=== PATIENT | male | born 1940 | race African-American/Black ===

== ENCOUNTER 2018-10-31 08:47 | Emergency (ER) | payer MEDICARE, MEDICAID ==
[~2018-10-31] VITALS: Ht 177.8 cm; Wt 87.0 kg
[~2018-10-31 08:47] MED LIST: AMLO5TAB4 PO; CELE200C PO; DEXL60CA3 PO; DIGO125T82 PO; DORZ10DR8 RIGHTEYE; HYDR12.529 PO; LATA2.5D2 RIGHTEYE; METF-414 PO; ROSU40TA PO; TADA5TAB PO; VALS320T2 PO; ZET10 PO
[2018-10-31] MEDS ORDERED: HYDROCODONE/ACETAMINOPHEN 5/325MG TABLET PO ONE (10:15)
[2018-10-31 10:28] LABS: BASOPHILS % 0.6 % (0.0-2.0); EOSINOPHILS % 0.8 % (0.0-5.0); HEMATOCRIT. 44.3 % (42.0-52.0); HEMOGLOBIN. 14.1 g/dL (14.0-18.0); LYMPHOCYTES % 25.8 % (20.0-50.0); MEAN CORPUSCULAR HEMOGLOBIN 23.3 pg (28.0-32.0); MEAN CORPUSCULAR VOLUME 73.2 fL (80.0-94.0); MEAN PLATELET VOLUME 8.8 fl (7.4-10.4); MONOCYTES % 10.1 % (2.0-8.0); NEUTROPHILS % 62.7 % (40.0-76.0); PLATELET 205 x1000/uL (130-400); RED BLOOD CELL COUNT 6.06 mill/uL (4.7-6.1)
[2018-10-31 10:35] LABS: CHLORIDE 106 mEq/L (98-107); INR 1.1; PARTIAL THROMBOPLASTIN TIME 22.4 sec (23.4-31.0); PROTHROMBIN TIME 10.9 sec (9.1-11.1)
[2018-10-31] MEDS ORDERED: NICARDIPINE 50 MG in SODIUM CHLORIDE 0.9% 230 ML IV PRN (11:00)
[2018-10-31] MEDS ORDERED: NICARDIPINE 40MG/200ML PREMIX 200 ML IV PRN (11:03)
[2018-10-31] MEDS ORDERED: IOHEXOL-350 100 ML BOTTLE ONE (12:08)
[2018-10-31] MEDS ORDERED: MANNITOL 20% (20GM/100ML) BAG 500ML PREMIX IV ONE (12:15)
[2018-10-31] MEDS ORDERED: MANNITOL 20% 250 ML IV ONE (12:30)
[2018-10-31 13:20] VITALS: BP 137/62
== END 2018-10-31 14:56 | disposition short-term general hospital (02) ==
LOC: ER 08:47
DX: I61.9 Nontraumatic intracerebral hemorrhage, unspecified (principal); I63.9 Cerebral infarction, unspecified; I10 Essential (primary) hypertension
CPT/HCPCS: 36415; 70450; 70496; 71045; 80053; 82962; 83880; 84484; 85025; 85610; 85730; 93005; 96365; 96367; 99285; Q9967; J3490; J7050; A4315

== ENCOUNTER 2019-01-15 22:17 | Emergency (ER) | payer MEDICARE, MEDICAID ==
[~2019-01-15] VITALS: Ht 175.3 cm; Wt 74.5 kg
[2019-01-15 22:29] VITALS: BP 163/92
== END 2019-01-16 01:00 | disposition left against medical advice (07) ==
LOC: ER 23:04
DX: Z53.21 Procedure and treatment not carried out due to patient leaving prior to being seen by health care provider (principal)

== ENCOUNTER 2019-01-23 23:20 | Emergency (ER) | payer MEDICARE, MEDICAID ==
[~2019-01-23] VITALS: Ht 175.3 cm; Wt 64.0 kg
[2019-01-23] MEDS ORDERED: MORPHINE SULFATE 4 MG/ML CPJ (NOT FOR IM USE) IV STA (23:51)
[2019-01-23] MEDS ORDERED: ONDANSETRON HCL 4MG/2ML INJ IV STA (23:51)
[2019-01-24 00:52] LABS: BASOPHILS % 0.8 % (0.0-2.0); EOSINOPHILS % 1.2 % (0.0-5.0); HEMOGLOBIN. 11.4 g/dL (14.0-18.0); LYMPHOCYTES % 22.1 % (20.0-50.0); MEAN CORPUSCULAR HEMOGLOBIN 24.3 pg (28.0-32.0); MEAN CORPUSCULAR VOLUME 74.6 fL (80.0-94.0); MEAN PLATELET VOLUME 7.9 fl (7.4-10.4); MONOCYTES % 10.1 % (2.0-8.0); NEUTROPHILS % 65.8 % (40.0-76.0); PLATELET 258 x1000/uL (130-400); RED BLOOD CELL COUNT 4.68 mill/uL (4.7-6.1); RED CELL DISTRIBUTION WIDTH 16.1 % (11.6-14.6)
[2019-01-24 01:05] LABS: CHLORIDE 105 mEq/L (98-107)
[2019-01-24 01:07] LABS: PARTIAL THROMBOPLASTIN TIME 25.2 sec (23.4-31.0); PROTHROMBIN TIME 10.4 sec (9.1-11.1)
[2019-01-24 04:30] VITALS: BP 159/94
[2019-01-24] MEDS ORDERED: IOHEXOL-350 100 ML BOTTLE ONE (04:32)
== END 2019-01-24 06:48 | disposition home or self-care (01) ==
LOC: ER 23:20
DX: R51 Headache (principal); R09.81 Nasal congestion; I10 Essential (primary) hypertension; E11.9 Type 2 diabetes mellitus without complications; Z95.1 Presence of aortocoronary bypass graft; Z98.1 Arthrodesis status; Z98.890 Other specified postprocedural states
CPT/HCPCS: 36415; 70450; 70496; 71045; 80053; 80320; 84484; 85025; 85610; 85730; 93005; 99284; Q9967; G0480

== ENCOUNTER 2019-02-21 07:31 | Emergency (ER) | payer MEDICAID, MEDICARE ==
[~2019-02-21] VITALS: Ht 172.7 cm; Wt 60.0 kg
[2019-02-21] MEDS ORDERED: SODIUM CHLORIDE 0.9% 500 ML IV ONE (08:15)
[2019-02-21 08:18] LABS: BASOPHILS % 0.5 % (0.0-2.0); EOSINOPHILS % 0.2 % (0.0-5.0); HEMATOCRIT. 37.8 % (42.0-52.0); HEMOGLOBIN. 12.2 g/dL (14.0-18.0); LYMPHOCYTES % 12.6 % (20.0-50.0); MEAN CORPUSCULAR HEMOGLOBIN 24.2 pg (28.0-32.0); MEAN PLATELET VOLUME 7.9 fl (7.4-10.4); MONOCYTES % 7.8 % (2.0-8.0); NEUTROPHILS % 78.9 % (40.0-76.0); PLATELET 191 x1000/uL (130-400); RED BLOOD CELL COUNT 5.03 mill/uL (4.7-6.1); RED CELL DISTRIBUTION WIDTH 15.8 % (11.6-14.6)
[2019-02-21 08:24] LABS: CHLORIDE 105 mEq/L (98-107)
[2019-02-21 08:56] LABS: CLARITY URINE CLOUDY (CLEAR); COLOR URINE YELLOW (YELLOW); KETONES URINE TRACE (NEGATIVE); LEUKOCYTE ESTERASE URINE 1+ (NEGATIVE); NITRITE URINE NEGATIVE (NEGATIVE); OCCULT BLOOD URINE NEGATIVE (NEGATIVE); PROTEIN URINE 1+ (NEGATIVE); SPECIFIC GRAVITY URINE 1.021 (1.005-1.030)
[2019-02-21 13:45] VITALS: BP 137/71
== END 2019-02-21 13:47 | disposition home or self-care (01) ==
LOC: ER 07:31
DX: R55 Syncope and collapse (principal); I11.9 Hypertensive heart disease without heart failure; E86.0 Dehydration; N39.0 Urinary tract infection, site not specified; I95.1 Orthostatic hypotension; I69.354 Hemiplegia and hemiparesis following cerebral infarction affecting left non-dominant side; E11.9 Type 2 diabetes mellitus without complications; Z95.1 Presence of aortocoronary bypass graft
CPT/HCPCS: 36415; 80048; 81003; 82962; 84484; 85025; 93005; 96360; 99284; J7040

== ENCOUNTER 2019-04-04 18:53 | Emergency (ER) | payer MEDICARE, MEDICAID ==
[~2019-04-04] VITALS: Ht 175.3 cm; Wt 69.0 kg
[2019-04-04 21:01] LABS: BASOPHILS % 0.5 % (0.0-2.0); EOSINOPHILS % 0.2 % (0.0-5.0); HEMATOCRIT. 32.7 % (42.0-52.0); HEMOGLOBIN. 10.7 g/dL (14.0-18.0); LYMPHOCYTES % 25.9 % (20.0-50.0); MEAN CORPUSCULAR HEMOGLOBIN 24.2 pg (28.0-32.0); MEAN CORPUSCULAR VOLUME 74.2 fL (80.0-94.0); MEAN PLATELET VOLUME 7.4 fl (7.4-10.4); MONOCYTES % 9.5 % (2.0-8.0); NEUTROPHILS % 63.9 % (40.0-76.0); PLATELET 220 x1000/uL (130-400); RED BLOOD CELL COUNT 4.41 mill/uL (4.7-6.1); RED CELL DISTRIBUTION WIDTH 14.1 % (11.6-14.6)
[2019-04-04 21:05] LABS: CHLORIDE 104 mEq/L (98-107)
[2019-04-04 21:09] LABS: INR 1.1; PARTIAL THROMBOPLASTIN TIME 24.3 sec (23.4-31.0); PROTHROMBIN TIME 11.5 sec (9.6-11.0)
[2019-04-04] MEDS ORDERED: FUROSEMIDE 20MG/2ML VIAL IVP ONE (23:15)
[2019-04-04 23:32] VITALS: BP 138/69
== END 2019-04-04 23:35 | disposition home or self-care (01) ==
LOC: ER 18:53
DX: R60.0 Localized edema (principal); D50.9 Iron deficiency anemia, unspecified; I11.0 Hypertensive heart disease with heart failure; M54.30 Sciatica, unspecified side; I50.9 Heart failure, unspecified; E11.9 Type 2 diabetes mellitus without complications; I67.1 Cerebral aneurysm, nonruptured; Z95.1 Presence of aortocoronary bypass graft
CPT/HCPCS: 36415; 71045; 83880; 93005; 93970; 99284

== ENCOUNTER 2019-05-12 23:02 | Emergency (ER) | payer MEDICARE, MEDICAID ==
[~2019-05-12] VITALS: Ht 177.8 cm; Wt 64.0 kg
[2019-05-13 00:14] LABS: BASOPHILS % 0.5 % (0.0-2.0); EOSINOPHILS % 0.8 % (0.0-5.0); HEMATOCRIT. 36.4 % (42.0-52.0); HEMOGLOBIN. 11.8 g/dL (14.0-18.0); LYMPHOCYTES % 19.5 % (20.0-50.0); MEAN CORPUSCULAR HEMOGLOBIN 24.2 pg (28.0-32.0); MEAN CORPUSCULAR VOLUME 74.9 fL (80.0-94.0); MONOCYTES % 10.6 % (2.0-8.0); NEUTROPHILS % 68.6 % (40.0-76.0); PLATELET 232 x1000/uL (130-400); RED BLOOD CELL COUNT 4.86 mill/uL (4.7-6.1); RED CELL DISTRIBUTION WIDTH 14.4 % (11.6-14.6)
[2019-05-13 00:21] LABS: CHLORIDE 104 mEq/L (98-107); PROTHROMBIN TIME 10.5 sec (9.6-11.0)
[2019-05-13 00:27] LABS: CLARITY URINE CLEAR (CLEAR); COLOR URINE YELLOW (YELLOW); KETONES URINE NEGATIVE (NEGATIVE); LEUKOCYTE ESTERASE URINE NEGATIVE (NEGATIVE); NITRITE URINE NEGATIVE (NEGATIVE); OCCULT BLOOD URINE NEGATIVE (NEGATIVE); PH URINE 6.5 (4.5-8.0); PROTEIN URINE NEGATIVE (NEGATIVE); SPECIFIC GRAVITY URINE 1.012 (1.005-1.030); UROBILINOGEN URINE 0.2 E.U./dL (0.2-1.0)
[2019-05-13 01:39] VITALS: BP 119/61
== END 2019-05-13 02:01 | disposition home or self-care (01) ==
LOC: ER 23:02
DX: R42 Dizziness and giddiness (principal); D50.9 Iron deficiency anemia, unspecified; I10 Essential (primary) hypertension; E11.9 Type 2 diabetes mellitus without complications; G93.89 Other specified disorders of brain; Z98.890 Other specified postprocedural states
CPT/HCPCS: 36415; 71045; 83880; 84484; 93005; 99284

== ENCOUNTER 2019-06-07 09:47 | Emergency (ER) | payer MEDICARE, MEDICAID ==
[~2019-06-07] VITALS: Ht 175.3 cm; Wt 64.0 kg
[2019-06-07] MEDS ORDERED: FURO40TA5 PO (10:11)
[2019-06-07] MEDS ORDERED: ALFU10TA9 PO (10:11)
[2019-06-07] MEDS ORDERED: LISI40TA4 PO (10:11)
[2019-06-07] MEDS ORDERED: ATEN-42 PO (10:11)
[2019-06-07] MEDS ORDERED: CHOL40002 PO (10:11)
[2019-06-07] MEDS ORDERED: GABA-529 PO (10:11)
[2019-06-07] MEDS ORDERED: ESOM40CA53 PO (10:11)
[2019-06-07] MEDS: ACETAMINOPHEN 325MG TABLET PO STA (10:46)
[2019-06-07] MEDS: SODIUM CHLORIDE 0.9% 1,000 ML IV ONE (10:46)
[2019-06-07] MEDS: DIPHENHYDRAMINE 50MG/ML VIAL IV ONE (11:00)
[2019-06-07] MEDS: METOCLOPRAMIDE HCL 10MG/2ML VIAL IV ONE (11:00)
[2019-06-07 11:02] LABS: BASOPHILS % 0.6 % (0.0-2.0); EOSINOPHILS % 0.4 % (0.0-5.0); HEMATOCRIT. 38.4 % (42.0-52.0); HEMOGLOBIN. 12.4 g/dL (14.0-18.0); LYMPHOCYTES % 19.4 % (20.0-50.0); MEAN CORPUSCULAR HEMOGLOBIN 24.3 pg (28.0-32.0); MEAN CORPUSCULAR VOLUME 75.3 fL (80.0-94.0); MEAN PLATELET VOLUME 8.1 fl (7.4-10.4); MONOCYTES % 7.1 % (2.0-8.0); NEUTROPHILS % 72.5 % (40.0-76.0); PLATELET 219 x1000/uL (130-400); RED CELL DISTRIBUTION WIDTH 14.5 % (11.6-14.6)
[2019-06-07 11:09] LABS: CHLORIDE 106 mEq/L (98-107)
[2019-06-07 11:16] LABS: ETHANOL BLOOD < 10 mg/dL
[2019-06-07 11:21] LABS: CLARITY URINE CLEAR (CLEAR); COLOR URINE YELLOW (YELLOW); KETONES URINE NEGATIVE (NEGATIVE); LEUKOCYTE ESTERASE URINE NEGATIVE (NEGATIVE); NITRITE URINE NEGATIVE (NEGATIVE); OCCULT BLOOD URINE NEGATIVE (NEGATIVE); PROTEIN URINE NEGATIVE (NEGATIVE); SPECIFIC GRAVITY URINE 1.008 (1.005-1.030); UROBILINOGEN URINE 0.2 E.U./dL (0.2-1.0)
[2019-06-07 11:38] LABS: *AMPHETAMINES SCREEN URINE NEGATIVE (NEGATIVE); *BARBITURATES SCREEN URINE NEGATIVE (NEGATIVE); *BENZODIAZEPINES SCREEN URINE NEGATIVE (NEGATIVE); *COCAINE SCREEN URINE NEGATIVE (NEGATIVE)
[2019-06-07 11:39] LABS: CANNABINOID URINE SCREEN NEGATIVE (NEGATIVE); METHADONE URINE SCREEN NEGATIVE (NEGATIVE); OPIATES URINE SCREEN NEGATIVE (NEGATIVE); PHENCYCLIDINE URINE SCREEN NEGATIVE (NEGATIVE)
[2019-06-07] MEDS ORDERED: IOHEXOL-350 100 ML BOTTLE ONE (12:44)
[2019-06-07 14:59] LABS: INR 1.1; PROTHROMBIN TIME 11.3 sec (9.6-11.0)
[2019-06-07 15:00] VITALS: BP 115/65
[2019-06-07] MEDS: DEXAMETHASONE 10 MG/ML VIAL IV ONE (15:04)
== END 2019-06-07 15:09 | disposition home or self-care (01) ==
LOC: ER 09:47
DX: R51 Headache (principal); D50.9 Iron deficiency anemia, unspecified; E87.6 Hypokalemia; E11.9 Type 2 diabetes mellitus without complications; E78.00 Pure hypercholesterolemia, unspecified; I11.9 Hypertensive heart disease without heart failure; I25.10 Atherosclerotic heart disease of native coronary artery without angina pectoris; Z95.1 Presence of aortocoronary bypass graft; Z98.62 Peripheral vascular angioplasty status; Z79.899 Other long term (current) drug therapy
CPT/HCPCS: 36415; 70496; 80053; 80305; 80320; 81003; 85025; 85610; 99284; J7030; Q9967; G0480

== ENCOUNTER 2019-08-28 19:04 | Emergency (ER) | payer MEDICARE, MEDICAID ==
[~2019-08-28] VITALS: Ht 177.8 cm; Wt 65.0 kg
[~2019-08-28 19:04] MED LIST changes: +ALFU10TA9 PO; -AMLO5TAB4 PO; +ASPI-1158 MT; -CELE200C PO; +CHOL40002 PO; +CLOP75TA15 PO; -DEXL60CA3 PO; +ESOM40CA53 PO; +FURO40TA5 PO; +GABA-529 PO; -HYDR12.529 PO; +METO-396 MT; -TADA5TAB PO; -VALS320T2 PO; -ZET10 PO
[2019-08-28 19:59] LABS: CLARITY URINE CLOUDY (CLEAR); KETONES URINE TRACE (NEGATIVE); LEUKOCYTE ESTERASE URINE 1+ (NEGATIVE); NITRITE URINE NEGATIVE (NEGATIVE); OCCULT BLOOD URINE 3+ (NEGATIVE); PH URINE 6.5 (4.5-8.0); PROTEIN URINE 4+ (NEGATIVE); SPECIFIC GRAVITY URINE 1.031 (1.005-1.030); UROBILINOGEN URINE 0.2 E.U./dL (0.2-1.0)
[2019-08-28 20:00] LABS: COLOR URINE BLOODY (YELLOW)
[2019-08-28 20:18] VITALS: BP 133/94
== END 2019-08-28 20:25 | disposition home or self-care (01) ==
LOC: ER 19:04
DX: N39.0 Urinary tract infection, site not specified (principal); R31.9 Hematuria, unspecified; I10 Essential (primary) hypertension; E11.9 Type 2 diabetes mellitus without complications; Z98.1 Arthrodesis status; Z79.84 Long term (current) use of oral hypoglycemic drugs; Z95.1 Presence of aortocoronary bypass graft; Z79.82 Long term (current) use of aspirin
CPT/HCPCS: 81003; 99283

== ENCOUNTER 2019-09-04 15:21 | Emergency (ER) | payer MEDICARE, MEDICAID ==
[~2019-09-04] VITALS: Ht 185.4 cm; Wt 87.0 kg
[2019-09-04] MEDS ORDERED: SODIUM CHLORIDE 0.9% 1,000 ML IV ONE (16:03)
[2019-09-04] MEDS ORDERED: MORPHINE SULFATE 4 MG/ML CPJ (NOT FOR IM USE) IV STA (16:03)
[2019-09-04 16:39] LABS: CHLORIDE 108 mEq/L (98-107)
[2019-09-04 16:43] LABS: BASOPHILS % 0.5 % (0.0-2.0); EOSINOPHILS % 0.7 % (0.0-5.0); HEMATOCRIT. 35.2 % (42.0-52.0); HEMOGLOBIN. 11.2 g/dL (14.0-18.0); LYMPHOCYTES % 13.1 % (20.0-50.0); MEAN CORPUSCULAR HEMOGLOBIN 23.9 pg (28.0-32.0); MEAN CORPUSCULAR VOLUME 75.6 fL (80.0-94.0); MEAN PLATELET VOLUME 8.6 fl (7.4-10.4); MONOCYTES % 9.9 % (2.0-8.0); NEUTROPHILS % 75.8 % (40.0-76.0); PLATELET 203 x1000/uL (130-400); RED BLOOD CELL COUNT 4.66 mill/uL (4.7-6.1); RED CELL DISTRIBUTION WIDTH 13.8 % (11.6-14.6)
[2019-09-04 16:48] LABS: T4 FREE 0.99 ng/dL (0.76-1.46)
[2019-09-04 17:22] LABS: CLARITY URINE CLEAR (CLEAR); COLOR URINE YELLOW (YELLOW); KETONES URINE NEGATIVE (NEGATIVE); LEUKOCYTE ESTERASE URINE NEGATIVE (NEGATIVE); NITRITE URINE NEGATIVE (NEGATIVE); OCCULT BLOOD URINE 2+ (NEGATIVE); PROTEIN URINE NEGATIVE (NEGATIVE); UROBILINOGEN URINE 0.2 E.U./dL (0.2-1.0)
[2019-09-04] MEDS ORDERED: ACETAMINOPHEN 500MG TABLET PO ONE (22:45)
[2019-09-04 23:34] VITALS: BP 109/59
== END 2019-09-04 23:37 | disposition home or self-care (01) ==
LOC: ER 15:28
DX: R55 Syncope and collapse (principal); I10 Essential (primary) hypertension; I25.10 Atherosclerotic heart disease of native coronary artery without angina pectoris; E11.9 Type 2 diabetes mellitus without complications; Z86.73 Personal history of transient ischemic attack (TIA), and cerebral infarction without residual deficits; Z95.1 Presence of aortocoronary bypass graft; Z79.82 Long term (current) use of aspirin; Z79.84 Long term (current) use of oral hypoglycemic drugs
CPT/HCPCS: 36415; 71045; 80053; 81003; 83690; 83880; 84439; 84443; 84484; 85025; 93005; 96360; 96361; 99284; J7030; J2270

== ENCOUNTER 2019-09-16 18:44 | Emergency (ER) | payer MEDICARE, MEDICAID ==
[~2019-09-16] VITALS: Ht 177.8 cm; Wt 84.0 kg
[2019-09-16 19:16] LABS: BASOPHILS % 0.7 % (0.0-2.0); EOSINOPHILS % 0.7 % (0.0-5.0); HEMATOCRIT. 30.3 % (42.0-52.0); HEMOGLOBIN. 9.7 g/dL (14.0-18.0); LYMPHOCYTES % 23.8 % (20.0-50.0); MEAN CORPUSCULAR VOLUME 75.2 fL (80.0-94.0); MEAN PLATELET VOLUME 8.6 fl (7.4-10.4); MONOCYTES % 13.1 % (2.0-8.0); NEUTROPHILS % 61.7 % (40.0-76.0); PLATELET 219 x1000/uL (130-400); RED BLOOD CELL COUNT 4.02 mill/uL (4.7-6.1); RED CELL DISTRIBUTION WIDTH 14.2 % (11.6-14.6)
[2019-09-16 19:19] LABS: CHLORIDE 108 mEq/L (98-107)
[2019-09-16 21:32] VITALS: BP 146/58
== END 2019-09-16 21:32 | disposition home or self-care (01) ==
LOC: ER 18:44 → CANBEDREQ 23:17
DX: R07.89 Other chest pain (principal); I25.10 Atherosclerotic heart disease of native coronary artery without angina pectoris; I11.0 Hypertensive heart disease with heart failure; I50.9 Heart failure, unspecified; E03.9 Hypothyroidism, unspecified; E11.9 Type 2 diabetes mellitus without complications; Z95.1 Presence of aortocoronary bypass graft; Z86.73 Personal history of transient ischemic attack (TIA), and cerebral infarction without residual deficits; Z79.82 Long term (current) use of aspirin; Z79.84 Long term (current) use of oral hypoglycemic drugs
CPT/HCPCS: 36415; 71045; 83880; 84484; 93005; 99284

== ENCOUNTER 2019-12-10 12:19 | Emergency (ER) | payer MEDICARE, MEDICAID ==
[~2019-12-10] VITALS: Ht 180.3 cm; Wt 75.0 kg
[~2019-12-10 12:19] MED LIST changes: +DIGO125T PO; -DIGO125T82 PO
[2019-12-10 14:25] LABS: BASOPHILS % 0.5 % (0.0-2.0); EOSINOPHILS % 0.4 % (0.0-5.0); HEMATOCRIT. 38.3 % (42.0-52.0); LYMPHOCYTES % 14.1 % (20.0-50.0); MEAN CORPUSCULAR HEMOGLOBIN 22.5 pg (28.0-32.0); MEAN CORPUSCULAR VOLUME 72.2 fL (80.0-94.0); MEAN PLATELET VOLUME 8.3 fl (7.4-10.4); MONOCYTES % 7.9 % (2.0-8.0); NEUTROPHILS % 77.1 % (40.0-76.0); PLATELET 193 x1000/uL (130-400)
[2019-12-10 14:31] LABS: INR 1.1; PROTHROMBIN TIME 11.6 sec (9.6-11.0)
[2019-12-10 14:31] LABS: CLARITY URINE CLOUDY (CLEAR); COLOR URINE BLOODY (YELLOW); KETONES URINE 2+ (NEGATIVE); LEUKOCYTE ESTERASE URINE 2+ (NEGATIVE); NITRITE URINE POSITIVE (NEGATIVE); OCCULT BLOOD URINE 3+ (NEGATIVE); PROTEIN URINE 3+ (NEGATIVE); SPECIFIC GRAVITY URINE 1.011 (1.005-1.030); UROBILINOGEN URINE 0.2 E.U./dL (0.2-1.0)
[2019-12-10 14:32] LABS: CHLORIDE 111 mEq/L (98-107)
[2019-12-10] MEDS ORDERED: CEFTRIAXONE 1 G PREMIX 50 ML IV ONE (15:00)
[2019-12-10 18:08] VITALS: BP 153/83
== END 2019-12-10 18:09 | disposition home or self-care (01) ==
LOC: ER 12:19
DX: N39.0 Urinary tract infection, site not specified (principal); R07.9 Chest pain, unspecified; R10.32 Left lower quadrant pain; I11.0 Hypertensive heart disease with heart failure; I50.9 Heart failure, unspecified; E05.90 Thyrotoxicosis, unspecified without thyrotoxic crisis or storm; E11.9 Type 2 diabetes mellitus without complications; I25.10 Atherosclerotic heart disease of native coronary artery without angina pectoris; Z86.73 Personal history of transient ischemic attack (TIA), and cerebral infarction without residual deficits; Z79.899 Other long term (current) drug therapy; Z79.82 Long term (current) use of aspirin; Z95.1 Presence of aortocoronary bypass graft; Z98.61 Coronary angioplasty status; Z98.890 Other specified postprocedural states
CPT/HCPCS: 36415; 80053; 81003; 84484; 85025; 85610; 87086; 93005; 96365; 99284; J0696

== ENCOUNTER 2020-03-29 20:52 | Emergency (ER) | payer MEDICARE, OTHER ==
[~2020-03-29] VITALS: Ht 172.7 cm; Wt 75.0 kg
[2020-03-29] MEDS: HYDROCODONE/ACETAMINOPHEN 5/325MG TABLET PO ONE ×2 (22:00→23:10)
[2020-03-29 22:45] LABS: BASOPHILS % 0.9 % (0.0-2.0); HEMATOCRIT. 34.6 % (42.0-52.0); HEMOGLOBIN. 10.8 g/dL (14.0-18.0); LYMPHOCYTES % 22.7 % (20.0-50.0); MEAN CORPUSCULAR HEMOGLOBIN 20.8 pg (28.0-32.0); MEAN CORPUSCULAR VOLUME 66.8 fL (80.0-94.0); MONOCYTES % 10.7 % (2.0-8.0); NEUTROPHILS % 64.7 % (40.0-76.0); PLATELET 249 x1000/uL (130-400); RED BLOOD CELL COUNT 5.18 mill/uL (4.7-6.1); RED CELL DISTRIBUTION WIDTH 17.3 % (11.6-14.6)
[2020-03-29 22:53] LABS: CHLORIDE 109 mEq/L (98-107)
[2020-03-29 22:54] LABS: PROTHROMBIN TIME 11.2 sec (9.6-11.0)
[2020-03-29 23:15] VITALS: BP 142/84
[2020-03-29 23:18] LABS: PLATELET ESTIMATE NORMAL
[2020-04-03] MEDS ORDERED: FINA5TAB11 PO (22:43)
== END 2020-03-29 23:35 | disposition left against medical advice (07) ==
LOC: ER 20:52
DX: R51 Headache (principal); I10 Essential (primary) hypertension; D64.9 Anemia, unspecified; I11.0 Hypertensive heart disease with heart failure; Z87.440 Personal history of urinary (tract) infections; E11.9 Type 2 diabetes mellitus without complications; Z98.890 Other specified postprocedural states; Z79.899 Other long term (current) drug therapy
CPT/HCPCS: 36415; 71045; 80053; 83880; 84484; 85025; 93005; 99285

== ENCOUNTER 2020-04-30 04:40 | Emergency (ER) | payer MEDICARE, MEDICAID ==
[~2020-04-30 04:40] MED LIST changes: -ALFU10TA9 PO; +FINA5TAB11 PO; -METF-414 PO
[2020-04-30 07:36] LABS: BASOPHILS % 0.4 % (0.0-2.0); EOSINOPHILS % 0.5 % (0.0-5.0); HEMATOCRIT. 36.9 % (42.0-52.0); HEMOGLOBIN. 11.8 g/dL (14.0-18.0); LYMPHOCYTES % 14.9 % (20.0-50.0); MEAN CORPUSCULAR HEMOGLOBIN 21.2 pg (28.0-32.0); MEAN CORPUSCULAR VOLUME 66.3 fL (80.0-94.0); MEAN PLATELET VOLUME 9.5 fl (7.4-10.4); MONOCYTES % 7.8 % (2.0-8.0); NEUTROPHILS % 76.4 % (40.0-76.0); PLATELET 187 x1000/uL (130-400); RED BLOOD CELL COUNT 5.56 mill/uL (4.7-6.1); RED CELL DISTRIBUTION WIDTH 19.1 % (11.6-14.6)
[2020-04-30 07:42] LABS: CHLORIDE 105 mEq/L (98-107)
[2020-04-30 08:52] VITALS: BP 120/78
[2020-04-30 10:31] LABS: PLATELET ESTIMATE NORMAL
== END 2020-04-30 09:03 | disposition home or self-care (01) ==
LOC: ER 04:40
DX: I11.0 Hypertensive heart disease with heart failure (principal); R42 Dizziness and giddiness; I50.9 Heart failure, unspecified; M19.90 Unspecified osteoarthritis, unspecified site; Z86.73 Personal history of transient ischemic attack (TIA), and cerebral infarction without residual deficits; Z95.1 Presence of aortocoronary bypass graft; Z79.82 Long term (current) use of aspirin
CPT/HCPCS: 36415; 80053; 85025; 93005; 99284

== ENCOUNTER 2020-05-09 19:38 | Emergency (ER) | payer MEDICARE, MEDICAID ==
[~2020-05-09] VITALS: Ht 177.8 cm; Wt 77.0 kg
[2020-05-09 21:56] LABS: BASOPHILS % 0.5 % (0.0-2.0); EOSINOPHILS % 0.6 % (0.0-5.0); HEMATOCRIT. 37.3 % (42.0-52.0); HEMOGLOBIN. 11.9 g/dL (14.0-18.0); LYMPHOCYTES % 13.3 % (20.0-50.0); MEAN CORPUSCULAR HEMOGLOBIN 21.1 pg (28.0-32.0); MEAN CORPUSCULAR VOLUME 66.2 fL (80.0-94.0); MEAN PLATELET VOLUME 8.9 fl (7.4-10.4); MONOCYTES % 9.8 % (2.0-8.0); NEUTROPHILS % 75.8 % (40.0-76.0); PLATELET 216 x1000/uL (130-400); RED BLOOD CELL COUNT 5.64 mill/uL (4.7-6.1); RED CELL DISTRIBUTION WIDTH 19.8 % (11.6-14.6)
[2020-05-09 22:03] LABS: CHLORIDE 106 mEq/L (98-107)
[2020-05-09 23:37] LABS: PLATELET ESTIMATE NORMAL
[2020-05-10 00:10] VITALS: BP 154/78
== END 2020-05-10 00:52 | disposition home or self-care (01) ==
LOC: ER 19:38
DX: I10 Essential (primary) hypertension (principal); R42 Dizziness and giddiness; F17.290 Nicotine dependence, other tobacco product, uncomplicated; Z79.82 Long term (current) use of aspirin; Z79.899 Other long term (current) drug therapy
CPT/HCPCS: 36415; 80053; 85025; 99283

== ENCOUNTER 2020-11-29 04:58 | Inpatient (IN) | payer MEDICARE, MEDICAID ==
[~2020-11-29] VITALS: Ht 185.4 cm; Wt 76.7 kg
[~2020-11-29 04:58] MED LIST changes: -ASPI-1158 MT; +ASPI-1406 MT; +LATA2.5D14 RIGHTEYE; -LATA2.5D2 RIGHTEYE
[2020-11-29 06:01] LABS: CHLORIDE 107 mEq/L (98-107)
[2020-11-29 06:02] LABS: BASOPHILS % 0.8 % (0.0-2.0); EOSINOPHILS % 0.9 % (0.0-5.0); HEMATOCRIT. 36.6 % (42.0-52.0); HEMOGLOBIN. 11.7 g/dL (14.0-18.0); MEAN CORPUSCULAR HEMOGLOBIN 22.7 pg (28.0-32.0); MEAN CORPUSCULAR VOLUME 71.2 fL (80.0-94.0); MEAN PLATELET VOLUME 8.3 fl (7.4-10.4); MONOCYTES % 12.6 % (2.0-8.0); NEUTROPHILS % 67.7 % (40.0-76.0); PLATELET 198 x1000/uL (130-400); RED BLOOD CELL COUNT 5.15 mill/uL (4.7-6.1)
[2020-11-29 06:23] LABS: INR 1.1; PROTHROMBIN TIME 11.2 sec (9.6-11.0)
[2020-11-29] MEDS ORDERED: LABETALOL 5MG/ML SYR 20 MG/4 ML SYRINGE IV ONE (06:30)
[2020-11-29] MEDS ORDERED: ASPIRIN 81MG TABLET PO ONE (06:30)
[2020-11-29] MEDS ORDERED: METOPROLOL TARTRATE 25MG TABLET PO ONE (06:30)
[2020-11-29 06:37] LABS: ETHANOL BLOOD < 10 mg/dL
[2020-11-29] MEDS ORDERED: NA PHOS,M-B/NA PHOS,DI-BA ENEMA 118ML PR PRN (09:15)
[2020-11-29] MEDS ORDERED: NITROGLYCERIN 0.4MG TABLET SL SL PRN (09:15)
[2020-11-29] MEDS ORDERED: ONDANSETRON HCL 4MG/2ML INJ IV PRN (09:15)
[2020-11-29] MEDS ORDERED: CLONIDINE 0.1MG TABLET PO PRN (09:15)
[2020-11-29] MEDS ORDERED: GUAIFENESIN 200MG/10ML SUGAR FREE UDC PO PRN (09:15)
[2020-11-29] MEDS ORDERED: DEXTROSE 50% WATER 50ML SYRINGE IV PRN (09:15)
[2020-11-29] MEDS ORDERED: MAGNESIUM/ALUMINUM HYDROXIDE/SIMETHICONE 30ML UDC PO PRN (09:15)
[2020-11-29] MEDS ORDERED: TRAMADOL 50MG TABLET PO PRN (09:15)
[2020-11-29] MEDS ORDERED: DOCUSATE SODIUM 100MG CAPSULE PO PRN (09:15)
[2020-11-29] MEDS ORDERED: ACETAMINOPHEN 325MG TABLET PO PRN (09:15)
[2020-11-29] MEDS ORDERED: IPRATROPIUM/ALBUTEROL 0.5-3(2.5)MG/3ML NEB NEB PRN (09:15)
[2020-11-29 10:05] LABS: DIGOXIN 0.5 ng/mL (0.9-2.0)
[2020-11-29 10:07] LABS: FOLIC ACID (FOLATE) SERUM >20 ng/mL ng/mL (>5.38)
[2020-11-29 10:19] LABS: VITAMIN B12 SERUM 1224 pg/mL (211-911)
[2020-11-29] MEDS: ZINC SULFATE 220 MG ( 50 ) CAPSULE PO SCH (11:10)
[2020-11-29] MEDS: CLOPIDOGREL 75MG TABLET PO SCH (11:11)
[2020-11-29] MEDS: ASCORBIC ACID 500 MG TABLET PO SCH ×2 (11:11→21:56)
[2020-11-29] MEDS: ACETAMINOPHEN 325MG TABLET PO PRN (11:12)
[2020-11-29] MEDS: LISINOPRIL 20MG TABLET PO SCH ×2 (11:12→21:56)
[2020-11-29] MEDS: ENOXAPARIN 40MG/0.4ML SYR SUBCUT SCH (11:23)
[2020-11-29 12:53] LABS: CLARITY URINE CLEAR (CLEAR); COLOR URINE YELLOW (YELLOW); KETONES URINE NEGATIVE (NEGATIVE); LEUKOCYTE ESTERASE URINE NEGATIVE (NEGATIVE); NITRITE URINE NEGATIVE (NEGATIVE); OCCULT BLOOD URINE NEGATIVE (NEGATIVE); PROTEIN URINE NEGATIVE (NEGATIVE); SPECIFIC GRAVITY URINE 1.008 (1.005-1.030); UROBILINOGEN URINE 0.2 E.U./dL (0.2-1.0)
[2020-11-29 13:08] LABS: *AMPHETAMINES SCREEN URINE NEGATIVE (NEGATIVE)
[2020-11-29 13:09] LABS: *BARBITURATES SCREEN URINE NEGATIVE (NEGATIVE); *COCAINE SCREEN URINE NEGATIVE (NEGATIVE); CANNABINOID URINE SCREEN NEGATIVE (NEGATIVE); METHADONE URINE SCREEN NEGATIVE (NEGATIVE); OPIATES URINE SCREEN NEGATIVE (NEGATIVE); PHENCYCLIDINE URINE SCREEN NEGATIVE (NEGATIVE)
[2020-11-29 13:10] LABS: *BENZODIAZEPINES SCREEN URINE NEGATIVE (NEGATIVE)
[2020-11-29] MEDS: INSULIN LISPRO 100 UNITS/ML SUBCUT SCH ×3 (13:20→21:00)
[2020-11-29] MEDS: BLOOD SUGAR DIAGNOSTIC STRIP TEST SCH ×3 (13:32→21:42)
[2020-11-29] MEDS: DIGOXIN 500MCG/2ML AMP IV SCH (18:34)
[2020-11-29] MEDS ORDERED: ZOLPIDEM TARTRATE 5MG TABLET PO PRN (21:00)
[2020-11-29 21:32] LABS: CREATINE KINASE 79 IU/L (39-308)
[2020-11-29 21:33] LABS: CREATINE KINASE MB FRACTION 1.2 ng/mL (0.5-3.6)
[2020-11-29] MEDS: FAMOTIDINE 20MG TABLET PO SCH (21:56)
[2020-11-30] MEDS: ACETAMINOPHEN 325MG TABLET PO PRN (03:28)
[2020-11-30] MEDS: INSULIN LISPRO 100 UNITS/ML SUBCUT SCH ×4 (06:48→21:00)
[2020-11-30] MEDS: BLOOD SUGAR DIAGNOSTIC STRIP TEST SCH ×4 (06:48→21:42)
[2020-11-30 09:40] LABS: BASOPHILS % 0.8 % (0.0-2.0); EOSINOPHILS % 0.7 % (0.0-5.0); HEMATOCRIT. 34.7 % (42.0-52.0); HEMOGLOBIN. 10.9 g/dL (14.0-18.0); LYMPHOCYTES % 18.2 % (20.0-50.0); MEAN CORPUSCULAR VOLUME 70.2 fL (80.0-94.0); MEAN PLATELET VOLUME 8.8 fl (7.4-10.4); MONOCYTES % 11.5 % (2.0-8.0); NEUTROPHILS % 68.8 % (40.0-76.0); PLATELET 197 x1000/uL (130-400); RED BLOOD CELL COUNT 4.94 mill/uL (4.7-6.1); RED CELL DISTRIBUTION WIDTH 17.2 % (11.6-14.6)
[2020-11-30 09:46] LABS: CHLORIDE 108 mEq/L (98-107)
[2020-11-30 09:50] LABS: PHOSPHORUS 2.9 mg/dL (2.5-4.9)
[2020-11-30 09:52] LABS: CREATINE KINASE 80 IU/L (39-308)
[2020-11-30 09:55] LABS: CREATINE KINASE MB FRACTION 1.4 ng/mL (0.5-3.6)
[2020-11-30] MEDS: LISINOPRIL 20MG TABLET PO SCH ×2 (10:00→21:15)
[2020-11-30] MEDS: ASCORBIC ACID 500 MG TABLET PO SCH ×2 (10:00→21:15)
[2020-11-30] MEDS: ZINC SULFATE 220 MG ( 50 ) CAPSULE PO SCH (10:00)
[2020-11-30] MEDS: ASPIRIN 81MG EC TABLET PO SCH (10:01)
[2020-11-30] MEDS: FAMOTIDINE 20MG TABLET PO SCH (10:01)
[2020-11-30] MEDS: CLOPIDOGREL 75MG TABLET PO SCH (10:15)
[2020-11-30 10:40] VITALS: BP 168/84
[2020-11-30] MEDS: ENOXAPARIN 40MG/0.4ML SYR SUBCUT SCH (11:37)
[2020-11-30 16:00] VITALS: BP 120/68
[2020-11-30] MEDS: DIGOXIN 500MCG/2ML AMP IV SCH (18:00)
[2020-11-30 20:35] VITALS: BP 131/71
[2020-12-01] VITALS: BP 116/62
[2020-12-01 02:00] VITALS: BP 121/66
[2020-12-01 04:00] VITALS: BP 133/68
[2020-12-01] MEDS: BLOOD SUGAR DIAGNOSTIC STRIP TEST SCH (07:26)
[2020-12-01] MEDS: INSULIN LISPRO 100 UNITS/ML SUBCUT SCH (07:27)
[2020-12-01 08:00] VITALS: BP 133/70
[2020-12-01] MEDS: FAMOTIDINE 20MG TABLET PO SCH ×2 (08:53→08:55)
[2020-12-01] MEDS: CLOPIDOGREL 75MG TABLET PO SCH (08:54)
[2020-12-01] MEDS: ASPIRIN 81MG EC TABLET PO SCH (08:54)
[2020-12-01] MEDS: ASCORBIC ACID 500 MG TABLET PO SCH (08:54)
[2020-12-01] MEDS: LISINOPRIL 20MG TABLET PO SCH (08:54)
[2020-12-01] MEDS: ZINC SULFATE 220 MG ( 50 ) CAPSULE PO SCH (08:54)
[2020-12-01 09:52] VITALS: BP 133/71
== END 2020-12-01 12:56 | disposition home or self-care (01) | DRG 305 ==
LOC: ER 05:26 → SUPCPDRO 09:08 → MICUSO 09:48 → EDBEDREQTM 09:51 → EDBEDREQ 09:51 → 6WST 11-30 10:13
PROVIDERS: ADMIT Internal Medicine; ATTEND Internal Medicine
DX: I16.1 Hypertensive emergency (principal); E44.1 Mild protein-calorie malnutrition; D63.8 Anemia in other chronic diseases classified elsewhere; E11.9 Type 2 diabetes mellitus without complications; I11.0 Hypertensive heart disease with heart failure; I25.10 Atherosclerotic heart disease of native coronary artery without angina pectoris; I48.0 Paroxysmal atrial fibrillation; I50.9 Heart failure, unspecified; Z95.1 Presence of aortocoronary bypass graft; Z95.2 Presence of prosthetic heart valve; Z79.899 Other long term (current) drug therapy; Z68.22 Body mass index [BMI] 22.0-22.9, adult
CPT/HCPCS: 36415; 71045; 80053; 80061; 80162; 80305; 80320; 81003; 82270; 82550; 82553; 82607; 82746; 82962; 83036; 83540; 83550; 83605; 83615; 83735; 83880; 84100; 84145; 84484; 85025; 85379; 93005; 93306; 93970; 97162; 97166; 99285; J1160; J1650; J3490; G0480

== ENCOUNTER 2022-09-30 14:27 | Inpatient (IN) | payer MEDICARE, MEDICAID ==
[~2022-09-30] VITALS: Ht 177.8 cm; Wt 63.6 kg
[~2022-09-30 14:27] MED LIST changes: +DULO60CA64 MT; +NYST15PO4 TP; +OLME40TA18 MT; +TAMS-11 MT; +TRAM50TA3 PO
[2022-09-30] MEDS ORDERED: FAMOTIDINE 20MG/2ML VIAL IV ONE (15:45)
[2022-09-30] MEDS ORDERED: SODIUM CHLORIDE 0.9% 1,000 ML IV ONE (15:45)
[2022-09-30] MEDS ORDERED: ONDANSETRON HCL 4MG/2ML INJ IV ONE (15:45)
[2022-09-30 16:05] LABS: HEMOGLOBIN. 11.9 g/dL (14.0-18.0); MEAN CORPUSCULAR HEMOGLOBIN 22.9 pg (28.0-32.0); MEAN CORPUSCULAR VOLUME 73.5 fL (80.0-94.0); MEAN PLATELET VOLUME 7.6 fl (7.4-10.4); PLATELET 186 x1000/uL (130-400); RED BLOOD CELL COUNT 5.17 mill/uL (4.7-6.1); RED CELL DISTRIBUTION WIDTH 15.3 % (11.6-14.6)
[2022-09-30 16:15] LABS: CHLORIDE 106 mEq/L (98-107)
[2022-09-30 16:54] LABS: PLATELET ESTIMATE NORMAL
[2022-09-30 17:55] LABS: CLARITY URINE CLOUDY (CLEAR); COLOR URINE DARK YELLOW (YELLOW); KETONES URINE TRACE (NEGATIVE); LEUKOCYTE ESTERASE URINE 1+ (NEGATIVE); NITRITE URINE POSITIVE (NEGATIVE); OCCULT BLOOD URINE 2+ (NEGATIVE); PH URINE 5.5 (4.5-8.0); PROTEIN URINE 2+ (NEGATIVE); SPECIFIC GRAVITY URINE 1.026 (1.005-1.030)
[2022-09-30] MEDS ORDERED: CEFTRIAXONE 1 G PREMIX 50 ML IV NR (18:30)
[2022-10-01 12:00] VITALS: BP 118/54
[2022-10-01] MEDS ORDERED: ONDANSETRON HCL 4MG/2ML INJ IV PRN (14:30)
[2022-10-01] MEDS ORDERED: CLONIDINE 0.1MG TABLET PO PRN (14:30)
[2022-10-01] MEDS ORDERED: IPRATROPIUM/ALBUTEROL 0.5-3(2.5)MG/3ML NEB NEB PRN (14:30)
[2022-10-01] MEDS ORDERED: TRAMADOL 50MG TABLET PO PRN (14:30)
[2022-10-01] MEDS ORDERED: NALOXONE HCL 0.4MG/ML VIAL IV PRN (14:45)
[2022-10-01 16:00] VITALS: BP 135/71
[2022-10-01] MEDS ORDERED: *PATIENT'S OWN MEDICATION STORAGE XX SCH (16:00)
[2022-10-01] MEDS: ENOXAPARIN 40MG/0.4ML SYR SUBCUT SCH (17:05)
[2022-10-01] MEDS: PIPERACILLIN/TAZOBACTAM 3.375 G in DEXTROSE 5% WATER 50 ML IV SCH (17:05)
[2022-10-01] MEDS: SODIUM CHLORIDE 0.9% 1,000 ML IV SCH (17:06)
[2022-10-01 17:33] VITALS: BP 118/54
[2022-10-01 20:00] VITALS: BP 152/85
[2022-10-01] MEDS: ATORVASTATIN CALCIUM 40MG TABLET PO SCH (21:35)
[2022-10-01] MEDS: DIGOXIN 125MCG TABLET PO SCH (21:36)
[2022-10-01] MEDS: METOPROLOL TARTRATE 25MG TABLET PO SCH (21:36)
[2022-10-01] MEDS: LATANOPROST 0.005% OPHTH DROPS 2.5ML RIGHTEYE SCH (21:37)
[2022-10-01] MEDS: ACETAMINOPHEN 325MG TABLET PO PRN (21:38)
[2022-10-01] MEDS: DORZOLAMIDE 2% OPHTH 10 ML BOTTLE RIGHTEYE SCH ×2 (21:38→23:00)
[2022-10-02] VITALS: BP 118/61
[2022-10-02 04:00] VITALS: BP 130/69
[2022-10-02] MEDS: PIPERACILLIN/TAZOBACTAM 3.375 G in DEXTROSE 5% WATER 50 ML IV SCH ×4 (04:46→21:36)
[2022-10-02] MEDS: SODIUM CHLORIDE 0.9% 1,000 ML IV SCH ×2 (04:46→17:26)
[2022-10-02 08:00] VITALS: BP 126/62
[2022-10-02] MEDS: DORZOLAMIDE 2% OPHTH 10 ML BOTTLE RIGHTEYE SCH ×2 (09:00→21:37)
[2022-10-02] MEDS: FUROSEMIDE 40MG TABLET PO SCH (09:10)
[2022-10-02] MEDS: ASPIRIN 81MG EC TABLET PO SCH (09:10)
[2022-10-02] MEDS: LOSARTAN POTASSIUM 50 MG TABLET PO SCH (09:10)
[2022-10-02] MEDS: GABAPENTIN 100MG CAPSULE PO SCH (09:11)
[2022-10-02] MEDS: CLOPIDOGREL 75MG TABLET PO SCH (09:11)
[2022-10-02] MEDS: FINASTERIDE 5MG TABLET PO SCH (09:11)
[2022-10-02] MEDS: DULOXETINE HCL 60MG DR CAPSULE PO SCH (09:11)
[2022-10-02] MEDS: TAMSULOSIN HCL 0.4MG SR CAPSULE PO SCH (09:12)
[2022-10-02] MEDS: METOPROLOL TARTRATE 25MG TABLET PO SCH ×2 (09:16→21:00)
[2022-10-02 12:00] VITALS: BP 112/64
[2022-10-02] MEDS: ACETAMINOPHEN 325MG TABLET PO PRN (14:26)
[2022-10-02] MEDS: ENOXAPARIN 40MG/0.4ML SYR SUBCUT SCH (14:26)
[2022-10-02 16:00] VITALS: BP 110/65
[2022-10-02 17:46] LABS: BASOPHILS % 0.4 % (0.0-2.0); EOSINOPHILS % 0.3 % (0.0-5.0); HEMATOCRIT. 36.6 % (42.0-52.0); HEMOGLOBIN. 11.7 g/dL (14.0-18.0); MEAN CORPUSCULAR HEMOGLOBIN 23.5 pg (28.0-32.0); MEAN CORPUSCULAR VOLUME 73.1 fL (80.0-94.0); MEAN PLATELET VOLUME 7.6 fl (7.4-10.4); MONOCYTES % 11.9 % (2.0-8.0); NEUTROPHILS % 68.4 % (40.0-76.0); PLATELET 215 x1000/uL (130-400); RED CELL DISTRIBUTION WIDTH 15.3 % (11.6-14.6)
[2022-10-02 18:00] LABS: CHLORIDE 106 mEq/L (98-107)
[2022-10-02] MEDS: THROAT LOZENGES-BENZOCAINE/MENTH/CETYLPYRD CL LOZENGES MM PRN ×2 (18:17→22:17)
[2022-10-02] MEDS: NYSTATIN POWDER 15GM TOP SCH (18:17)
[2022-10-02 20:00] VITALS: BP 106/67
[2022-10-02] MEDS: ATORVASTATIN CALCIUM 40MG TABLET PO SCH (21:36)
[2022-10-02] MEDS: DIGOXIN 125MCG TABLET PO SCH (21:36)
[2022-10-02] MEDS: LATANOPROST 0.005% OPHTH DROPS 2.5ML RIGHTEYE SCH (21:37)
[2022-10-03] VITALS: BP 115/63
[2022-10-03] MEDS: ACETAMINOPHEN 325MG TABLET PO PRN ×2 (00:45→22:46)
[2022-10-03 04:00] VITALS: BP 124/62
[2022-10-03] MEDS: SODIUM CHLORIDE 0.9% 1,000 ML IV SCH (05:39)
[2022-10-03] MEDS: PIPERACILLIN/TAZOBACTAM 3.375 G in DEXTROSE 5% WATER 50 ML IV SCH ×3 (05:39→22:34)
[2022-10-03 08:00] VITALS: BP 125/69
[2022-10-03] MEDS: DULOXETINE HCL 60MG DR CAPSULE PO SCH (09:00)
[2022-10-03] MEDS: METOPROLOL TARTRATE 25MG TABLET PO SCH ×2 (09:49→21:00)
[2022-10-03] MEDS: ASPIRIN 81MG EC TABLET PO SCH (09:49)
[2022-10-03] MEDS: TAMSULOSIN HCL 0.4MG SR CAPSULE PO SCH (09:49)
[2022-10-03] MEDS: GABAPENTIN 100MG CAPSULE PO SCH (09:49)
[2022-10-03] MEDS: FINASTERIDE 5MG TABLET PO SCH (09:49)
[2022-10-03] MEDS: FUROSEMIDE 40MG TABLET PO SCH (09:49)
[2022-10-03] MEDS: LOSARTAN POTASSIUM 50 MG TABLET PO SCH (09:49)
[2022-10-03] MEDS: CLOPIDOGREL 75MG TABLET PO SCH (09:49)
[2022-10-03] MEDS: DORZOLAMIDE 2% OPHTH 10 ML BOTTLE RIGHTEYE SCH ×2 (09:50→22:37)
[2022-10-03] MEDS: NYSTATIN POWDER 15GM TOP SCH ×2 (09:50→17:42)
[2022-10-03 12:00] VITALS: BP 125/66
[2022-10-03] MEDS: ENOXAPARIN 40MG/0.4ML SYR SUBCUT SCH (15:32)
[2022-10-03 16:00] VITALS: BP 121/58
[2022-10-03 20:00] VITALS: BP 130/73
[2022-10-03] MEDS: DIGOXIN 125MCG TABLET PO SCH (21:00)
[2022-10-03] MEDS: ATORVASTATIN CALCIUM 40MG TABLET PO SCH (22:34)
[2022-10-03] MEDS: THROAT LOZENGES-BENZOCAINE/MENTH/CETYLPYRD CL LOZENGES MM PRN (22:36)
[2022-10-03] MEDS: LATANOPROST 0.005% OPHTH DROPS 2.5ML RIGHTEYE SCH (22:37)
[2022-10-04] VITALS: BP 115/60
[2022-10-04 04:00] VITALS: BP 130/57
[2022-10-04] MEDS: PIPERACILLIN/TAZOBACTAM 3.375 G in DEXTROSE 5% WATER 50 ML IV SCH ×3 (05:25→21:03)
[2022-10-04] MEDS: THROAT LOZENGES-BENZOCAINE/MENTH/CETYLPYRD CL LOZENGES MM PRN ×2 (05:25→20:52)
[2022-10-04 08:00] VITALS: BP 131/71
[2022-10-04] MEDS: FUROSEMIDE 40MG TABLET PO SCH (09:43)
[2022-10-04] MEDS: PREDNISONE 20MG TABLET PO SCH ×2 (09:43→16:36)
[2022-10-04] MEDS: ASPIRIN 81MG EC TABLET PO SCH (09:43)
[2022-10-04] MEDS: FINASTERIDE 5MG TABLET PO SCH (09:43)
[2022-10-04] MEDS: CLOPIDOGREL 75MG TABLET PO SCH (09:43)
[2022-10-04] MEDS: LOSARTAN POTASSIUM 50 MG TABLET PO SCH (09:43)
[2022-10-04] MEDS: DULOXETINE HCL 60MG DR CAPSULE PO SCH (09:44)
[2022-10-04] MEDS: TAMSULOSIN HCL 0.4MG SR CAPSULE PO SCH (09:44)
[2022-10-04] MEDS: GABAPENTIN 100MG CAPSULE PO SCH (09:44)
[2022-10-04] MEDS: NYSTATIN POWDER 15GM TOP SCH ×2 (09:47→16:36)
[2022-10-04] MEDS: DORZOLAMIDE 2% OPHTH 10 ML BOTTLE RIGHTEYE SCH ×2 (09:47→20:49)
[2022-10-04] MEDS: FLUTICASONE/VILANTEROL 200-25 BLST.W.DEV ORI SCH (09:48)
[2022-10-04] MEDS: METOPROLOL TARTRATE 25MG TABLET PO SCH ×2 (09:57→20:49)
[2022-10-04 10:39] LABS: BASOPHILS % 0.5 % (0.0-2.0); EOSINOPHILS % 1.3 % (0.0-5.0); HEMATOCRIT. 34.8 % (42.0-52.0); HEMOGLOBIN. 11.3 g/dL (14.0-18.0); LYMPHOCYTES % 28.6 % (20.0-50.0); MEAN CORPUSCULAR HEMOGLOBIN 23.4 pg (28.0-32.0); MEAN CORPUSCULAR VOLUME 72.3 fL (80.0-94.0); MEAN PLATELET VOLUME 7.8 fl (7.4-10.4); MONOCYTES % 11.8 % (2.0-8.0); NEUTROPHILS % 57.8 % (40.0-76.0); PLATELET 231 x1000/uL (130-400); RED BLOOD CELL COUNT 4.82 mill/uL (4.7-6.1)
[2022-10-04 11:16] LABS: CHLORIDE 107 mEq/L (98-107)
[2022-10-04 12:00] VITALS: BP 126/73
[2022-10-04] MEDS: ENOXAPARIN 40MG/0.4ML SYR SUBCUT SCH (14:13)
[2022-10-04 16:00] VITALS: BP 123/69
[2022-10-04] MEDS ORDERED: POTASSIUM CHLORIDE 20MEQ TABLET SR PO NR (16:30)
[2022-10-04 20:00] VITALS: BP 133/78
[2022-10-04] MEDS: ATORVASTATIN CALCIUM 40MG TABLET PO SCH (20:49)
[2022-10-04] MEDS: DIGOXIN 125MCG TABLET PO SCH (20:49)
[2022-10-04] MEDS: LATANOPROST 0.005% OPHTH DROPS 2.5ML RIGHTEYE SCH (20:49)
[2022-10-04] MEDS: ACETAMINOPHEN 325MG TABLET PO PRN (20:52)
[2022-10-05] VITALS: BP 123/68
[2022-10-05] MEDS: POLYVINYL ALCOHOL OPHTH DROPS 15ML BOTHEYE PRN ×2 (00:40→06:30)
[2022-10-05] MEDS: THROAT LOZENGES-BENZOCAINE/MENTH/CETYLPYRD CL LOZENGES MM PRN (02:25)
[2022-10-05 04:00] VITALS: BP 127/58
[2022-10-05] MEDS: PIPERACILLIN/TAZOBACTAM 3.375 G in DEXTROSE 5% WATER 50 ML IV SCH ×2 (05:30→13:10)
[2022-10-05 08:00] VITALS: BP 123/69
[2022-10-05] MEDS: DULOXETINE HCL 60MG DR CAPSULE PO SCH (09:12)
[2022-10-05] MEDS: FUROSEMIDE 40MG TABLET PO SCH (09:12)
[2022-10-05] MEDS: ASPIRIN 81MG EC TABLET PO SCH (09:12)
[2022-10-05] MEDS: NYSTATIN POWDER 15GM TOP SCH ×2 (09:12→18:04)
[2022-10-05] MEDS: FINASTERIDE 5MG TABLET PO SCH (09:12)
[2022-10-05] MEDS: CLOPIDOGREL 75MG TABLET PO SCH (09:12)
[2022-10-05] MEDS: GABAPENTIN 100MG CAPSULE PO SCH (09:12)
[2022-10-05] MEDS: FLUTICASONE/VILANTEROL 200-25 BLST.W.DEV ORI SCH (09:12)
[2022-10-05] MEDS: PREDNISONE 20MG TABLET PO SCH ×2 (09:12→18:04)
[2022-10-05] MEDS: LOSARTAN POTASSIUM 50 MG TABLET PO SCH (09:12)
[2022-10-05] MEDS: TAMSULOSIN HCL 0.4MG SR CAPSULE PO SCH (09:12)
[2022-10-05] MEDS: DORZOLAMIDE 2% OPHTH 10 ML BOTTLE RIGHTEYE SCH (09:13)
[2022-10-05] MEDS: METOPROLOL TARTRATE 25MG TABLET PO SCH (09:13)
[2022-10-05 12:00] VITALS: BP 130/75
[2022-10-05] MEDS: ENOXAPARIN 40MG/0.4ML SYR SUBCUT SCH (15:00)
[2022-10-05 16:00] VITALS: BP 126/70
[2022-10-05] MEDS ORDERED: MED4 MT (16:48)
[2022-10-05] MEDS ORDERED: TUSSL MT (16:49)
[2022-10-05] MEDS ORDERED: NITR-87 MT (16:51)
[2022-10-05 19:32] VITALS: BP 126/70
== END 2022-10-05 21:00 | disposition home or self-care (01) | DRG 871 ==
LOC: ER 14:27 → 6WST 22:51 → EDBEDREQTM 10-01 08:13 → UNDOADMIN 10-01 09:32 → 6WST 10-01 09:32 → 6EST 10-01 11:00 → 7EST 10-02 12:08
PROVIDERS: ADMIT Internal Medicine; ATTEND Internal Medicine
DX: A41.51 Sepsis due to Escherichia coli [E. coli] (principal); U07.1 COVID-19; N39.0 Urinary tract infection, site not specified; F03.90 Unspecified dementia, unspecified severity, without behavioral disturbance, psychotic disturbance, mood disturbance, and anxiety; I10 Essential (primary) hypertension; I25.10 Atherosclerotic heart disease of native coronary artery without angina pectoris; K80.20 Calculus of gallbladder without cholecystitis without obstruction; R21 Rash and other nonspecific skin eruption; N20.0 Calculus of kidney; K57.10 Diverticulosis of small intestine without perforation or abscess without bleeding; Z28.310 Unvaccinated for COVID-19; Z79.82 Long term (current) use of aspirin; Z79.899 Other long term (current) drug therapy; Z95.1 Presence of aortocoronary bypass graft; Z86.16 Personal history of COVID-19; Z86.73 Personal history of transient ischemic attack (TIA), and cerebral infarction without residual deficits
CPT/HCPCS: 36415; 71045; 74178; 80048; 80053; 80162; 81003; 84145; 84484; 85025; 87077; 87186; 87426; 87804; 93005; 99285; J0696; J1650; J2405; J2543; J3490; J7030; J7060; J7512

== ENCOUNTER 2024-07-29 18:34 | Emergency (ER) | payer MEDICARE, MEDICAID ==
[~2024-07-29] VITALS: Ht 177.8 cm; Wt 73.0 kg
[~2024-07-29 18:34] MED LIST changes: -ESOM40CA53 PO; +ESOM40CA65 PO; +METH4TAB95 MT; +NITR-87 MT; +TUSSL MT
[2024-07-29 18:35] VITALS: O2SAT 99
[2024-07-29 21:03] LABS: BASOPHILS % 0.5 % (0.0-2.0); DIFFERENTIAL COMMENT 0; EOSINOPHILS % 0.5 % (0.0-5.0); HEMATOCRIT. 42.2 % (42.0-52.0); HEMOGLOBIN. 12.9 g/dL (14.0-18.0); LYMPHOCYTES % 20.5 % (20.0-50.0); MEAN CORPUSCULAR HGB CONC 30.6 g/dL (31.0-37.0); MONOCYTES % 9.9 % (2.0-8.0); NEUTROPHILS % 68.6 % (40.0-76.0); PLATELET 189 x1000/uL (130-400); RED BLOOD CELL COUNT 5.63 mill/uL (4.7-6.1); RED CELL DISTRIBUTION WIDTH 15.7 % (11.6-14.6)
[2024-07-29 21:07] LABS: CHLORIDE 108 mEq/L (98-107); POTASSIUM 3.8 mEq/L (3.5-5.1); SODIUM 141 mEq/L (136-145)
[2024-07-29 21:08] LABS: CARBON DIOXIDE 25 mEq/L (21-32)
[2024-07-29 21:09] LABS: CALCIUM 10.4 mg/dL (8.7-10.4)
[2024-07-29 21:13] LABS: CREATININE 0.7 mg/dL (0.6-1.3); GLUCOSE 96 mg/dL (70-105)
[2024-07-29 21:14] LABS: UREA NITROGEN BLOOD 7 mg/dL (9-23)
[2024-07-29 21:15] LABS: ALANINE AMINOTRANSFERASE 23 IU/L (10-49); ALBUMIN 4.3 g/dL (3.2-4.8); ASPARTATE AMINOTRANSFERASE 19 IU/L (<34)
[2024-07-29 21:16] LABS: BILIRUBIN TOTAL 0.2 mg/dL (0.1-1.0)
[2024-07-29 22:15] VITALS: BP 159/91; PULSE 62; RESP 20; TEMP 36.72516; O2SAT 99
== END 2024-07-29 22:17 | disposition home or self-care (01) ==
LOC: ER 18:34
DX: I10 Essential (primary) hypertension (principal); G44.209 Tension-type headache, unspecified, not intractable; Z98.890 Other specified postprocedural states; Z79.899 Other long term (current) drug therapy
CPT/HCPCS: 36415; 80053; 85025; 99284

== ENCOUNTER 2024-08-12 22:34 | Emergency (ER) | payer MEDICARE, MEDICAID ==
[~2024-08-12] VITALS: Ht 182.9 cm; Wt 82.0 kg
[2024-08-12 22:41] VITALS: BP 157/79; PULSE 96; RESP 18; TEMP 98.2; O2SAT 99
[2024-08-13] MEDS ORDERED: TRAMADOL 50MG TABLET PO ONE (00:45)
[2024-08-13] MEDS ORDERED: TRAMADOL 50MG TABLET PO NR (01:00)
== END 2024-08-13 01:38 | disposition home or self-care (01) ==
LOC: ER 23:28
DX: I10 Essential (primary) hypertension (principal); G89.29 Other chronic pain; E11.9 Type 2 diabetes mellitus without complications; Z79.899 Other long term (current) drug therapy; Z79.82 Long term (current) use of aspirin; Z79.02 Long term (current) use of antithrombotics/antiplatelets
CPT/HCPCS: 99283

== ENCOUNTER 2025-05-30 03:52 | Emergency (ER) | payer OTHER, MEDICARE, MEDICAID ==
[~2025-05-30] VITALS: Ht 177.8 cm; Wt 75.0 kg
[~2025-05-30 03:52] MED LIST changes: +NYST15PO13 TP; -NYST15PO4 TP; -TAMS-11 MT; +TAMS-54 MT
[2025-05-30 04:06] VITALS: BP 138/72; PULSE 81; RESP 18; TEMP 37; O2SAT 100
== END 2025-05-30 05:10 | disposition home or self-care (01) ==
LOC: ER 03:52
DX: T83.098A Other mechanical complication of other urinary catheter, initial encounter (principal); E11.9 Type 2 diabetes mellitus without complications; I10 Essential (primary) hypertension; N40.0 Benign prostatic hyperplasia without lower urinary tract symptoms; Z79.899 Other long term (current) drug therapy; X58.XXXA Exposure to other specified factors, initial encounter; Y93.89 Activity, other specified
CPT/HCPCS: 99283